=== PATIENT | female | born 1950 ===

== ENCOUNTER 2018-09-06 11:55 | Emergency (ER) | payer OTHER ==
[~2018-09-06] VITALS: Ht 152.4 cm; Wt 81.6 kg
[2018-09-06] MEDS ORDERED: COZAAR50 MG PO (12:03)
== END 2018-09-06 19:29 | disposition home or self-care (01) ==
LOC: ER 11:55
DX: R42 Dizziness and giddiness (principal); N39.0 Urinary tract infection, site not specified